=== PATIENT | female | born 1950 | race Asian ===

== ENCOUNTER 2016-09-13 21:19 | Emergency (ER) | payer OTHER ==
[~2016-09-13] VITALS: Ht 160 cm; Wt 60.0 kg
[2016-09-13 22:01] LABS: BASOPHILS % 1.4 % (0.0-2.0); EOSINOPHILS % 4.8 % (0.0-5.0); HEMATOCRIT. 38.3 % (36.0-48.0); HEMOGLOBIN. 12.7 g/dL (12.0-16.0); LYMPHOCYTES % 45.4 % (20.0-50.0); MEAN CORPUSCULAR HEMOGLOBIN 30.3 pg (28.0-32.0); MEAN CORPUSCULAR VOLUME 91.1 fL (81.0-99.0); MEAN PLATELET VOLUME 7.9 fl (7.4-10.4); MONOCYTES % 6.3 % (2.0-8.0); NEUTROPHILS % 42.1 % (40.0-76.0); PLATELET 206 x1000/uL (130-400); RED CELL DISTRIBUTION WIDTH 13.4 % (11.6-14.6)
[2016-09-13 22:04] LABS: CHLORIDE 110 mEq/L (98-107)
[2016-09-13 22:10] LABS: CARBON DIOXIDE 32 mEq/L (21-32)
[2016-09-13 22:13] LABS: D-DIMER 0.3 mg/L FEU (<0.50); PARTIAL THROMBOPLASTIN TIME 26.5 sec (24.0-34.0)
[2016-09-13 22:15] LABS: TROPONIN I < 0.02 ng/mL (0.00-0.04)
[2016-09-13 23:09] VITALS: BP 150/91
== END 2016-09-14 00:09 | disposition left against medical advice (07) ==
LOC: ER 21:49
DX: R07.2 Precordial pain (principal); R06.02 Shortness of breath
CPT/HCPCS: 36415; 71010; 80048; 83880; 84484; 85025; 85379; 85610; 85730; 93005; 99285; Z7610